=== PATIENT | female | born 1960 | race Caucasian/White ===

== ENCOUNTER 2016-09-30 12:39 | Day surgery (SDC) | payer OTHER ==
[~2016-09-30] VITALS: Ht 152.4 cm; Wt 55.0 kg
[2016-09-30] VITALS (11 sets, daily range): BP systolic 104–141; BP diastolic 48–64; PULSE 66–92; RESP 14–20; Ht 152.4 cm; Wt 55.0 kg
[~2016-09-30 12:39] MED LIST: DIPHENHYDRAMINE 50 MG INJ IV PRN; FENTAnyl 50 MCG/ML VIAL IV PRN; HYDROmorphONE (0.2 MG/ML) 10ML SYG IV PRN; MEPERIDINE 25 MG INJ IV PRN; OMEP20CA16 PO; ONDANSETRON 4 MG INJ IV PRN; OXYCODONE/ACETAMINOPHEN (5/325) TAB PO PRN; PROCHLORPERAZINE 10 MG INJ IV PRN
[2016-09-30 13:40] LABS: BASOPHILS % 0.5 % (0.0-2.0); EOSINOPHILS # 0.2 10^3/ul (0.0-0.5); EOSINOPHILS % 2.2 % (0.0-7.0); HEMATOCRIT 41.6 % (37.0-47.0); HEMOGLOBIN 14.6 g/dl (12.0-16.0); LYMPHOCYTES # 1.5 10^3/ul (0.8-2.9); LYMPHOCYTES % 18.7 % (15.0-51.0); MEAN CORPUSCULAR HEMOGLOBIN 30.7 pg (29.0-33.0); MEAN CORPUSCULAR HGB CONC 35.1 g/dl (32.0-37.0); MEAN CORPUSCULAR VOLUME 87.6 fl (82.0-101.0); MONOCYTE # 0.4 10^3/ul (0.3-0.9); MONOCYTES % 4.7 % (0.0-11.0); NEUTROPHIL # 5.9 10^3/ul (1.6-7.5); NEUTROPHILS % 73.7 % (39.0-77.0); PLATELET COUNT 247 10^3/UL (140-415); RED BLOOD COUNT 4.75 10^6/ul (4.20-5.40); RED CELL DISTRIBUTION WIDTH 12.2 % (11.5-14.5)
--- NOTE | 2016-09-30 13:46 | RADRPT ---
PROCEDURE: XR Chest. CLINICAL INDICATION: Preop. Right breast mass. TECHNIQUE: AP view of the chest was obtained. COMPARISON: None. FINDINGS: The cardiomediastinal silhouette is within normal limits. The lungs are clear. No pleural effusion or pneumothorax is identified. Visualized osseous structures appear intact. IMPRESSION: No evidence of active cardiopulmonary disease. RPTAT: VV .Rony Gray MD, Date Time Electronically viewed and signed by .Rony Gray MD, on 09/30/2016 13:46 .O/
[2016-09-30 13:55] LABS: INR 0.88; PROTIME 11.9 Sec (12.2-14.2); PT RATIO 0.9
[2016-09-30 13:56] LABS: PARTIAL THROMBOPLASTIN TIME 26.4 Sec (25.0-35.0)
[2016-09-30 13:58] LABS: ALBUMIN 4.5 g/dl (3.3-4.9); ALBUMIN/GLOBULIN RATIO 1.4; TOTAL PROTEIN 7.7 g/dl (6.1-8.1)
[2016-09-30 14:02] LABS: CALCIUM 9.7 mg/dl (8.4-10.2); CREATININE 0.76 mg/dl (0.44-1.00)
[2016-09-30] MEDS ORDERED: PROPOFOL 20 ML ONE (14:05)
[2016-09-30] MEDS ORDERED: LIDOCAINE 2% (SDV) 5 ML INJ ONE (14:05)
[2016-09-30] MEDS ORDERED: MIDAZOLAM 1 MG/ML 2 ML INJ ONE (14:05)
[2016-09-30] MEDS ORDERED: FENTAnyl 50 MCG/ML VIAL ONE (14:05)
[2016-09-30] MEDS ORDERED: LIDOCAINE 1% (MPF) 30 ML INJ ONE (14:43)
[2016-09-30] MEDS ORDERED: BUPIVACAINE 0.25%/EPI (SDV) 30 ML INJ ONE (14:44)
[2016-09-30] MEDS ORDERED: ONDANSETRON 4 MG INJ ONE (15:10)
[2016-09-30] MEDS ORDERED: CEFAZOLIN 1 GM INJ ONE (15:10)
[2016-09-30] MEDS ORDERED: DEXAMETHASONE 4 MG/ML 1 ML INJ ONE (15:11)
[2016-09-30] MEDS ORDERED: METOCLOPRAMIDE 10 MG INJ ONE (15:11)
[2016-09-30] MEDS ORDERED: KETOROLAC 30 MG INJ ONE (15:28)
[2016-09-30] MEDS ORDERED: EPHEDrine SULFATE 50 MG/5 ML SYG ONE (15:40)
--- NOTE | 2016-09-30 15:47 | OPR ---
Date/Time of Note Date/Time of Note DATE: 09/30/16 TIME: 15:43 Operative Report Procedure Date: Sep 30, 2016 Preoperative Diagnosis Right breast mass Postoperative Diagnosis Right breast mass Operation Performed Excisional biopsy right breast mass Surgeon: PATSY MACIAS MD Anesthesia: general Anesthesiologist: JES POOLE MD Estimated Blood Loss: minimal Specimens Right breast mass Complications: None Pt Condition Post Procedure: stable Disposition: PACU Indications Patient is a 56-year-old female who presented to the office complaining of a painful mass of the right breast. 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 However, the patient remains symptomatic. Therefore, excision was recommended for symptom relief and definitive pathological diagnosis. All risks and benefits of the procedure including, but not limited to: Wound infection, excessive bleeding, postoperative seroma/ hematoma formation, mass recurrence, possible need for further surgery, etc. were all explained to the patient in full detail. She fully understood and wished to proceed with the procedure. Informed consent was obtained. 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 Bilateral sequential compression devices were placed on both lower extremities. A dose of broad-spectrum perioperative intravenous antibiotics was given. The massive been preoperatively marked and confirmed with the patient in the holding area. After the induction of smooth general anesthesia the patient's right breast and chest wall were prepped and draped in standard surgical fashion. After performing surgical timeout a curvilinear incision was made over the area of the mass which is located in the 11 o'clock position of the right breast approximately 2 cm from the nipple areolar complex. Incision was then carried down through the skin and dermis into the subcutaneous tissues using Bovie electrocautery. Flaps were then raised and circumferential dissection was done around the mass. Mass was then transected at its base. Marking sutures were used to jessica the superior and lateral aspect. The mass is possible to feel the specimen. Hemostasis was inspected for and noted to be total. The wound cavity was irrigated with warm saline and the irrigant returned clear. 0.25% Marcaine was then infiltrated around the incision site. Incision was then closed in layers using interrupted 3-0 Vicryl sutures for the dermal layer. The skin was reapproximated using a running subcuticular 4-0 Monocryl suture. Incision was cleaned and Dermabond was applied as well as a sports bra. The patient was awoken from anesthesia and transferred to recovery room in stable condition. All counts were correct at the end of the case 2. PATSY MACIAS MD Sep 30, 2016 15:47
--- NOTE | 2016-09-30 15:53 | RADRPT ---
Vent Rate: 60 bpm RR Interval: 0 msec MT Interval: 124 msec QRS Duration: 124 msec QT Interval: 470 msec QTC Interval: 470 msec P-R-T [place]: 61 - 24 - 122 degrees Normal sinus rhythm Left bundle branch block Abnormal ECG Electronically Signed By: James Culver [id number]
[2016-09-30] MEDS ORDERED: CEFAZOLIN 2 GM/50 ML (PMX) 50 ML IVPB ONE (16:00)
[2016-09-30] MEDS ORDERED: IBUPROFEN 600 MG TAB PO PRN (16:00)
[2016-09-30] MEDS ORDERED: ONDANSETRON 4 MG INJ IV PRN (16:00)
[2016-09-30] MEDS ORDERED: KETOROLAC 30 MG INJ IV PRN (16:00)
[2016-09-30] MEDS ORDERED: SOD CHLORIDE 0.9% 1,000 ML IV ONE (16:00)
[2016-09-30] MEDS ORDERED: HYDROCODONE/APAP (5/325) TAB PO PRN (16:00)
--- NOTE | 2016-10-03 11:35 | HKNOTE ---
DATE OF SERVICE: 09/29/2016 HISTORY OF PRESENT ILLNESS: Lou is an 84-year-old [place]ian speaking lady who has a known case of urothelial cancer, high grade. She had chemo radiation until June 2016. She was admitted to the hospital this time on 09/27/16 because of severe epistaxis and anemia. The patient's epistaxis is much better and she is feeling better. PAST MEDICAL HISTORY: Past medical history, please see the H\T\P. PHYSICAL EXAMINATION: Physical examination shows a moderately overweight female in no distress. She is on oxygen. HEENT: Normal. HEART: Normal. LUNGS: Normal, except for decreased breath sounds in both bases. ABDOMEN: Soft. EXTERNAL GENITALIA: Normal. EXTREMITIES: No edema, clubbing or cyanosis. EMU FARMER: No focal defects. LABORATORY DATA: Her CBC today shows hemoglobin 9.2, after 2 units of packed cells given yesterday and her hemoglobin before was 7.6. Her WBC platelets are normal. Her CMP today is basically unremarkable. IMPRESSION: 1. Recurrent epistaxis with normal PT and PTT, improving. 2. High-grade urothelial cancer, status post chemo radiation until mid-June 2016 with no hematuria. 3. Anemia with unremarkable anemia panel, most likely secondary to epistaxis plus anemia of chronic illness. PLAN: The patient's epistaxis is much better. If her hemoglobin is stable, she could be discharged and be followed as an outpatient. Interestingly, her PT and PTT are completely normal. Hence, coagulopathy causing the bleeding from the nose is unlikely. She may have a local problem like dry nose or local nose problems on the mucosa. Dictated By: Martinez Mueller MD /teressa/solis /Document#: [id number]
== END 2016-09-30 17:30 | disposition home or self-care (01) ==
LOC: SDS 12:39
PROVIDERS: ATTEND Surgery
DX: D24.1 Benign neoplasm of right breast (principal); E03.9 Hypothyroidism, unspecified
CPT/HCPCS: 19120; 71010; 80053; 85025; 85610; 85730; 88307; 93005; J0690; J1100; J1885; J2250; J2405; J2765; J3010; Z7512; Z7610

== ENCOUNTER 2017-05-23 05:44 | Day surgery (SDC) | END 2017-05-23 17:09 | disposition home or self-care (01) ==